=== PATIENT | male | born 1995 | race Caucasian/White ===

== ENCOUNTER 2016-10-13 19:51 | Emergency (ER) | payer MEDICAID ==
[~2016-10-13] VITALS: Ht 175.3 cm; Wt 131.5 kg
[2016-10-13 20:05] VITALS: BP_SYST 155
[2016-10-13 22:39] LABS: CLARITY/URINE CLEAR (CLEAR); COLOR,URINE YELLOW (YELLOW); PH,URINE 6.5 (5.0-8.0)
[2016-10-13 22:40] LABS: BILIRUBIN,URINE NEGATIVE (NEGATIVE); BLOOD, URINE NEGATIVE (NEGATIVE); GLUCOSE,URINE NEGATIVE (NEGATIVE); KETONES,URINE NEGATIVE (NEGATIVE); LEUKOCYTE ESTERASE ,URINE NEGATIVE (NEGATIVE); NITRITE, URINE NEGATIVE (NEGATIVE); PROTEIN URINE NEGATIVE (NEGATIVE); UROBILINOGEN,URINE 0.2 (0.2-1.0)
--- NOTE | 2016-10-14 | NUR ---
Placed in room 03 . Placed on managed care manager, blood pressure machine and pulse oximeter. To gown for exam. Side rails up. Report given to ARNOLD Crenshaw.
--- NOTE | 2016-10-14 00:06 | NUR ---
Patient to ERC/O urinary symptoms of pain with urination and frequency. Patient states that for the past week he had pelvic pressure and feeling that he did not empty the bladder. AAOx4, unlabored breathing, no signs of acute distress.
--- NOTE | 2016-10-14 00:19 | NUR ---
ER MD Ku at bedside for evaluation
[2016-10-14 01:30] VITALS: BP_SYST 126
--- NOTE | 2016-10-14 01:30 | NUR ---
# 8 FR In and Out catheter with use of sterile technique. Immediate return of 150 ml yellow urine noted. Urine sample collected and sent to lab. Pt tolerated procedure well. Patient unable to toilet self.
--- NOTE | 2016-10-14 01:30 | NUR ---
Patient given written and verbal discharge instructions and verbalizes understanding. ER MD Ku discussed with patient the results and treatment provided. Patient in stable condition. ID arm band removed. Rx of bactrim given. Patient educated on pain management and to follow up with PMD. Pain Scale 0/10. Opportunity for questions provided and answered.
[2016-10-14] MEDS ORDERED: SULFAMETHOXAZOLE/TRIMETHOPR DS 1 TABLET PO ONE (02:00)
== END 2016-10-14 01:30 | disposition home or self-care (01) ==
LOC: SED 19:51
DX: R42 Dizziness and giddiness (principal); R00.2 Palpitations; R30.0 Dysuria; Z87.891 Personal history of nicotine dependence
CPT/HCPCS: 81003; 99283